=== PATIENT | female | born 1990 | race Caucasian/White ===

== ENCOUNTER 2023-12-05 15:42 | Outpatient (CLI) | payer OTHER | END 2023-12-05 16:38 | disposition home or self-care (01) | LOC: NST 15:42 | PROVIDERS: ATTEND Obstetrics & Gynecology | DX: Z34.83 Encounter for supervision of other normal pregnancy, third trimester (principal) ==

== ENCOUNTER 2023-12-26 12:13 | Outpatient (CLI) | payer OTHER ==
[2024-01-21] MEDS ORDERED: PRENATAL TABLE1 EAC1 PO (16:04)
[2024-01-21] MEDS ORDERED: LABETALOL HCL200 MG PO (16:04)
== END 2023-12-26 12:35 | disposition home or self-care (01) ==
LOC: NST 12:13
PROVIDERS: ATTEND Obstetrics & Gynecology Maternal & Fetal Medicine
DX: Z34.83 Encounter for supervision of other normal pregnancy, third trimester (principal)

== ENCOUNTER 2024-01-17 13:21 | Outpatient (CLI) | payer OTHER | END 2024-01-17 13:41 | disposition home or self-care (01) | LOC: NST 13:21 | PROVIDERS: ATTEND Obstetrics & Gynecology Gynecology | DX: Z34.83 Encounter for supervision of other normal pregnancy, third trimester (principal) ==